=== PATIENT | male | born 1960 | race Caucasian/White ===

== ENCOUNTER 2016-09-21 10:51 | Emergency (ER) ==
[2016-09-21] MEDS ORDERED: ZOFRAN ONE (10:56)
[2016-09-21] MEDS ORDERED: MORPHINE ONE (10:57)
[2016-09-21] MEDS ORDERED: NITROGLYCERIN SL PRN (11:04)
[2016-09-21] MEDS ORDERED: ASPIRIN PO STA (11:04)
[2016-09-21] MEDS ORDERED: HEPARIN IV ONE (11:06)
[2016-09-21] MEDS ORDERED: ZOFRAN IV ONE (11:06)
[2016-09-21] MEDS ORDERED: MORPHINE IV ONE (11:06)
--- NOTE | 2016-09-21 11:06 | ED EKG INTERP ---
EKG Interpretation - EKG Time of EKG reading by physician:: 10:53 EKG Read and Signed by:: Kaden Bates EKG Interpretation (*Must complete 3 of following elements*): Abnormal Rate: 104 (ST elevation, consider anterolateral injury or acute infarct; ACUTE IA/STEMI ) Rhythm: sinus tachycardia Attestation - Scribe Verification/Attestation Scribe:: Liyah Amaya Acting as Scribe for:: Kaden Bates Scribe documention review:: This chart was documented by a scribe and accurately reflects the service the provider performed and the decisions made by the provider.
--- NOTE | 2016-09-21 11:12 | PROVIDER DOCUMENTATION ---
HPI-Chest Pain - General Chief Complaint: Heart Alert Stated Complaint: CP Time Seen by Provider: 09/21/16 11:04 Source: patient Allergies/Adverse Reactions: Patient Allergies Allergy/AdvReac Type Severity Reaction Status Date / Time Sulfa (Sulfonamide Allergy Unknown Verified 09/21/16 11:06 Antibiotics) Home Medications: Home Medication List Medication Instructions Recorded Confirmed Last Taken Type No Home Medications 09/21/16 09/21/16 Unknown History - History of Present Illness-CP Nature of Presenting Problem: Pt is a 56 yom who drove to the ED with a cc of chest pain. Pt report he was eating breakfast, a donut and some coffee. Pt reports he started having severe chest pain a 04/16 for about twenty minutes and drove to the ED. PT reports he has no medical history. Abigail cocaine or stimulant use. Location: reports: [facility] Quality of Pain: reports: sharp, stabbing Severity in ED: mild Onset/Duration: 1/2 hour ago Timing: still present Context/Activities at Onset: reports: eating Nitro Today/Relief: no nitro taken today Aspirin Treatment Today: no aspirin today Prior Chest Pain/Cardiac Workup: reports: no prior chest pain Similar Symptoms Previously?: No Recently Seen Here or By Another Healthcare Provider: No Review of Systems - Adult - REVIEW OF SYSTEMS - ADULT Constitutional: denies: chills, fever Eyes: denies: decreased vision, double vision Ears, Nose, Mouth & Throat: reports: no symptoms reported Cardiovascular: reports: chest pain (04/16). denies: heart murmur, orthopnea, poor circulation Respiratory: denies: shortness of breath, wheezing Gastrointestinal: reports: no symptoms reported Genitourinary: reports: no symptoms reported Musculoskeletal: reports: no symptoms reported Integumentary: reports: no symptoms reported Neurological: reports: no symptoms reported Psychiatric: reports: no symptoms reported Endocrine: reports: no symptoms reported Hematologic/Lymphatic: reports: no symptoms reported Allergic/Immunologic: reports: no symptoms reported All Other Systems: Reviewed and Negative Past History - Adult - PAST MEDICAL HISTORY-ADULT Review of Records: reports: Old Records Reviewed, Nursing Assessment Review Major Childhood Illnesses: reports: denies history Cardiovascular: reports: denies history Respiratory: reports: denies history Gastrointestinal: reports: denies history Obstetrical/Gynecological: reports: denies history Genitourinary: reports: denies history Musculoskeletal: reports: denies history Neurological: reports: denies history Endocrine/Immune: reports: denies history Other Conditions: reports: denies history - IMMUNIZATION STATUS Childhood Immunizations: See Nurse Assessment Flu Vaccine: See Nurse Assessment - FAMILY HISTORY Family History: reviewed, not pertinent Physical Exam-General - PHYSICAL EXAM-ADULT Initial Vital Signs Reviewed: Yes - CONSTITUTIONAL General Appearance: alert, severe distress - EYES Eyes: PERRL/EOMI, pink conjunctivae, fundi clear, no AV nicking - HEAD, EARS, NOSE, MOUTH & THROAT HENMT: normocephalic/atraumatic, moist mucous membranes, normal ENT inspection - NECK Neck: non-tender - RESPIRATORY Respiratory: lungs clear, normal breath sounds - CARDIOVASCULAR Cardiovascular: tachycardia, other (chest pain) - GASTROINTESTINAL (ABDOMEN) Abdominal Exam: normal bowel sounds - LYMPHATIC Lymphatic: no adenopathy - MUSCULOSKELETAL Back Exam: normal inspection, no CVA tenderness Extremity: normal range of motion, non-tender, normal gait - SKIN Integumentary: normal color - NEUROLOGIC Neurologic: grossly normal - PSYCHIATRIC Psych/Mental Status: normal mood/affect, normal thought content, normal thought process, oriented x 3 Progress - PLAN OF CARE/RESULTS Progress/Plan/Lab Results: Orders Category Date Time Status Morphine Med 09/21/16 10:57 Discontinued 4 mg .ROUTE .STK-MED ONE Ondansetron [Zofran] Med 09/21/16 10:56 Discontinued 4 mg .ROUTE .STK-MED ONE Vital Signs - 24 hr 09/21/16 10:55 Temperature 98.0 F Pulse Rate 103 H Respiratory 28 H Rate Blood Pressure 198/117 O2 Sat by Pulse 100 Oximetry Departure - Departure Time of Disposition Order: 11:29 DIAGNOSIS: STEMI (ST elevation myocardial infarction) Qualifiers: Involved coronary artery: unspecified coronary artery Qualified Code(s): I21.3 - ST elevation (STEMI) myocardial infarction of unspecified site Disposition: [facility] 02 Certified Medical Emergency: Emergent Condition: Critical Referrals: Ernesto Ortega MD [Primary Care Provider] - Attestation - Scribe Verification/Attestation Scribe:: Liyah Amaya Acting as Scribe for:: Nia Caruso Scribe documention review:: This chart was documented by a scribe and accurately reflects the service the provider performed and the decisions made by the provider.
--- NOTE | 2016-09-21 11:12 | PROVIDER DOCUMENTATION ---
HPI-Chest Pain - General Stated Complaint: CP Time Seen by Provider: 09/21/16 11:04 Allergies/Adverse Reactions: Patient Allergies Allergy/AdvReac Type Severity Reaction Status Date / Time Sulfa (Sulfonamide Allergy Unknown Verified 09/21/16 11:06 Antibiotics) Home Medications: Home Medication List Medication Instructions Recorded Confirmed Last Taken Type No Home Medications 09/21/16 09/21/16 Unknown History Progress - PLAN OF CARE/RESULTS Progress/Plan/Lab Results: Vital Signs Temp Pulse Resp BP Pulse Ox 09/21/16 10:55 98.0 F 103 H 28 H 198/117 100 Sulfa (Sulfonamide Antibiotics) Allergy (Verified 09/21/16 11:06) Unknown No Home Medications 09/21/16 Laboratory 09/21/16 09/21/16 10:58 10:58 Magnesium 2.0 [id number] Pept 38 - CONSULTS/PCP/HOSPITALIST Notification Time Discussed: 11:55 Reason/Comments: STEMI, accepts 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
--- NOTE | 2016-09-21 13:02 | EKG Report ---
Test Performed on : 09/21/2016 10:53:12 AM Test Reason : Chest Pain Blood Pressure : / mmHG Vent. Rate : 104 BPM Atrial Rate : 104 BPM P-R Int : 122 ms QRS Dur : 094 ms QT Int : 336 ms P-R-T Axes : 061 030 -26 degrees QTc Int : [address] elevation, consider anterolateral injury or acute infarct ACUTE OR / STEMI Abnormal ECG No previous ECGs available Unconfirmed Result
[2016-09-21 14:51] VITALS: BP 109/71
== END 2016-09-21 11:23 | disposition short-term general hospital (02) ==
LOC: ED 10:51
DX: I21.3 ST elevation (STEMI) myocardial infarction of unspecified site (principal); R94.31 Abnormal electrocardiogram [ECG] [EKG]; R07.89 Other chest pain; R00.0 Tachycardia, unspecified
CPT/HCPCS: 83735; 83880; 93005; J1644; J2270; J2405